=== PATIENT | male | born 1955 | race Caucasian/White ===

== ENCOUNTER 2016-08-02 12:20 | Inpatient (IN) | payer BC ==
[~2016-08-02] VITALS: Ht 195.6 cm; Wt 96.5 kg
--- NOTE | 2016-08-03 07:05 | MH ---
cc: MELINDA PEREZ DATE OF ADMISSION 08/03/2016 ADMISSION DIAGNOSIS Left hip osteoarthritis HISTORY This is a 61-year-old male with significant left hip pain. Investigative studies shows evidence of extensive arthritis of the left hip. Despite conservative care, this patient is painful and symptomatic. He presents for surgical treatment. PAST MEDICAL HISTORY, SOCIAL HISTORY AND FAMILY HISTORY, REVIEW OF SYSTEMS See attached notes. PHYSICAL EXAMINATION A 61-year-old male in moderate disstress with his left hip. HEENT: Normocephalic, atraumatic. Pupils equal, round, reactive to light and accommodation, extraocular motions intact. NECK: Supple. CHEST: Clear. HEART: Regular rate and rhythm. ABDOMEN: Soft, nontender, normoactive bowel sounds. MUSCULOSKELETAL: Left hip has pain with range of motion especially with internal and external rotation. NEUROLOGIC AND VASCULAR: Examination is within normal limits. IMPRESSION Osteoarthritis left hip. PLAN Left total hip replacement arthroplasty. CONSENT The risks with surgery including infection, bleeding, loss of motion, continued pain, need for further surgery, neurologic or vascular injury, the patient understands these issues with wishes to press on with surgery as outlined above. MD CHRISTIANO Collins/YVETTE /11:14 PM /7:03 AM
[2016-08-03] MEDS ORDERED: NEOSTIGMINE 3 MG/3 ML SYR IV ONE (09:20)
[2016-08-03] MEDS ORDERED: LACTATED RINGER'S 1000 ML INJ 2,000 ML IV ONE (09:20)
[2016-08-03] MEDS ORDERED: PROPOFOL 200 MG/20 ML AMP IV ONE (09:20)
[2016-08-03] MEDS ORDERED: ePHEDrine/NS 50 MG/5 ML SYR IV ONE (09:20)
[2016-08-03] MEDS ORDERED: PHENYLEPH/NS 1000 MCG/10 ML SYR IV ONE (09:20)
[2016-08-03] MEDS ORDERED: ONDANSETRON HCL 4 MG/2 ML VIAL IV PUSH ONE (09:20)
[2016-08-03] MEDS ORDERED: ceFAZolin 2 GM PREMIX 50 ML IV SCH (10:00)
[2016-08-03] MEDS ORDERED: SODIUM CHLORID 0.9% 500 ML IV SCH (10:00)
[2016-08-03] MEDS ORDERED: VANCOMYCIN 1000 MG/NS 250 ML (for <70 kg) IV SCH ×2 (10:00)
[2016-08-03] MEDS ORDERED: INSULIN HUMAN REGULAR 1,000 UNITS/10 ML VIAL SQ PRN (10:00)
[2016-08-03] MEDS ORDERED: METOPROLOL TARTRATE 25 MG TAB PO PRN (10:00)
[2016-08-03] MEDS ORDERED: LACTATED RINGER'S 1000 ML IV SCH (10:00)
[2016-08-03] MEDS ORDERED: EXPAREL PERI-ARTICULAR INJECTION (TOTAL VOL. 60 ML) P-ARTICULR SCH ×2 (10:00)
[2016-08-03] MEDS ORDERED: TRANEXAMIC ACID INJ 902 MG in SODIUM CHLORIDE 0.9% INJ 100 ML IV SCH ×2 (10:00→14:30)
[2016-08-03 10:14] VITALS: BP 131/97; PULSE 81; RESP 20; TEMP 98; O2SAT 100
[2016-08-03] MEDS ORDERED: GENTAMICIN SULFATE 80 MG/2 ML VIAL ONE (10:15)
[2016-08-03] MEDS ORDERED: TAMS5CAP PO (10:26)
[2016-08-03] MEDS ORDERED: PRIL20CA9 PO (10:26)
[2016-08-03] MEDS ORDERED: FAMOTIDINE 20 MG/2 ML VIAL ONE (10:48)
[2016-08-03] MEDS ORDERED: FAMOTIDINE 20 MG/2 ML VIAL IV ONE (10:49)
[2016-08-03] MEDS ORDERED: ACETAMINOPHEN 1000 MG/100 ML VIAL IV ONE (10:58)
[2016-08-03] MEDS ORDERED: fentaNYL CITRATE 250 MCG/5 ML AMP ONE ×2 (10:58→14:34)
[2016-08-03] MEDS ORDERED: GENTAMICIN SULFATE 80 MG/2 ML VIAL IRRIGATION ONE (12:09)
--- NOTE | 2016-08-03 14:09 | PD.OP ---
cc: Cesar Ahuja MD Operative Report Date of Surgery: Aug 03, 2016 Preoperative Diagnosis: Osteoarthritis left hip, severe Postoperative Diagnosis: Same. Ganglion cyst/bursitis, left abductor compartment Procedure: Left total hip replacement arthroplasty, direct anterior exposure Anesthesia: Gen. Surgeon: Cesar Ahuja Improvement Intern(s): BRADLEY Vann Operation and Findings: EBL: 500 cc INDICATION: This patient presents with significant hip pain related to severe osteoarthritis of the left hip with a contracture and lateral subluxation of the femoral head. Despite extensive conservative care this patient continues to be painful and now presents for surgical treatment. NOTE: María Elena Vann PA-C was present for the entire surgical procedure as my medical records assistant. In my medical opinion her skill and care was necessary for the proper management of this patient. COMPONENTS: COMPANY: [employer] CUP: [place], 58 mm, 100 series, gription surface LINER: Altrx 36 mm, +4, neutral STEM: 6 Corail size 16, standard offset, hydroxyapatite-coated HEAD: Metal, 36 mm, +15.5 neck length, 12/14 taper PROCEDURE: This patient was brought to the operating room and anesthetized in the supine position and positioned on the fracture table with both legs held extended. The left hip and leg was scrubbed with alcohol followed by Hibiclens followed by ChloraPrep and draped sterilely. Antibiotics were given within routine time window and a timeout was done. A 4 inch incision was made starting 2 cm distal and 2 cm lateral to the anterior superior iliac spine. The fascia mallika was opened longitudinally. The interval between the fascia mallika and the rectus was opened down to the capsule of the hip joint. There was evidence of a bursitis-type fluid collection that was located in the region of the gluteus minimus. This was resected and sent to pathology. A benign appearance to it. Retractors were positioned allowing good visualization of the capsule. This was opened longitudinally and flaps were created. Stay sutures were utilized. Exposure was excellent. The neck was cut at the proper location using fluoroscopy as a guide. The head was removed. Deep retractors were positioned allowing good visualization of the acetabulum. Acetabulum was deepened down to the floor starting with a proper size reamer and reaming up to 57 mm. A trial was utilized. Fluoroscopy was used to check position and confirmed satisfactory alignment. The rim was reamed with a 58 mm reamer and the final cup was positioned in approximately 20 of anteversion and 40-45 of abduction. Position was satisfactory. Because of concerns of leg length, we placed a temporary +4 liner. The lifting hook was utilized. The leg was dropped to the floor, maximally externally rotated and brought across the midline. Retractors were positioned. A box osteotome was utilized followed by progressive broaching to the proper stem size. Trial reduction showed excellent alignment and fit. With 60 of external rotation the leg was dropped to the floor without evidence of anterior subluxation. The wound was irrigated. We were concerned because of shortening of the left leg versus the right. We tried broaching with a size 18 and the fit was an proper. We elected to go with standard offset on a 16 stem with a long neck length using a +4 liner. That brought offset and leg length within a few millimeters of normal. The final liner was positioned. The final stem was positioned. The final reduction using the final head. Stability was as previously noted. Intraoperative x-rays were taken. The wound was irrigated copiously. Hemostasis was controlled. Local anesthesia was utilized. The capsule was repaired with #2 Tycron sutures. The fascia mallika was repaired with running 0 PDS on a loop. Subcutaneous tissue was approximated with 2-0 Vicryl and skin with running intradermal 3-0 Vicryl followed by Steri-Strips. A sterile dressing was applied. The patient was awakened and taken to the recovery room in satisfactory condition. FINDINGS: This patient had a large ganglion cyst in the region of the abductor muscles. Resected and sent to pathology. The patient had severe arthritis with a contracture. The final solution was felt be very excellent. Cesar Ahuja MD Aug 03, 2016 14:09
[2016-08-03] MEDS ORDERED: HYDR-3583 PO (14:11)
[2016-08-03] MEDS ORDERED: XARE10TA PO (14:11)
[2016-08-03] MEDS ORDERED: MORPHINE SULFATE 30 MG/30 ML PCA ONE (14:14)
[2016-08-03] MEDS ORDERED: TEMAZEPAM 15 MG CAP PO PRN (14:15)
[2016-08-03] MEDS ORDERED: MAGNESIUM HYDROXIDE SUSP 30 ML CUP PO PRN (14:15)
[2016-08-03] MEDS ORDERED: SODIUM CHLORIDE 0.9% FLUSH 5 ML FLUSH IVF PRN (14:15)
[2016-08-03] MEDS ORDERED: NALOXONE HCL 0.4 MG/ML AMP IV PRN (14:15)
[2016-08-03] MEDS ORDERED: ONDANSETRON HCL 4 MG/2 ML VIAL IVP PRN (14:15)
[2016-08-03] MEDS ORDERED: MORPHINE SULFATE 8 MG/ML INJ IV PUSH PRN (14:15)
[2016-08-03] MEDS ORDERED: Post-op Orders (for Pharmacy) MISC XX ONE (14:15)
[2016-08-03] MEDS ORDERED: BISACODYL 10 MG SUPP PR PRN (14:15)
[2016-08-03] MEDS ORDERED: ALUMINUM/MAGNESIUM/SIMETH 30 ML CUP PO PRN (14:15)
[2016-08-03] MEDS: MORPHINE SULFATE 30 MG/30 ML PCA IV SCH ×2 (14:30→19:32)
[2016-08-03] MEDS: LACTATED RINGER'S 1000 ML INJ 1,000 ML IV SCH (14:32)
[2016-08-03] MEDS ORDERED: MORPHINE SULFATE 4 MG/ML INJ ONE (14:34)
--- NOTE | 2016-08-03 15:55 | RADRPT ---
EXAM DATE/TIME: 08/03/2016 12:08 [place] COMPARISON: No previous studies available for comparison. INDICATIONS : Total anterior left hip arthroplasty. OR. MEDICAL HISTORY : None. SURGICAL HISTORY : None. ENCOUNTER: Initial ACUITY: 1 day PAIN SCORE: Non-responsive. LOCATION: Left hip FINDINGS: A two view examination of the left hip was performed. Post surgical changes followup hip replacement are noted. Acetabular and femoral components are well-seated and satisfactory alignment. There is no subacute fracture. CONCLUSION: Satisfactory appearance of the left hip status post hip replacement. Stas Cramer MD on August 03, 2016 at 15:53 Board Certified Radiologist. This report was verified electronically.
[2016-08-03] MEDS ORDERED: DO NOT ADM ANY ANTICOAGULANT DRUGS XX PRN (16:30)
[2016-08-03 17:15] VITALS: BP 129/81; PULSE 92; RESP 18; TEMP 97.1; O2SAT 99
[2016-08-03] MEDS: CEFAZOLIN IV SCH ×2 (18:31→23:56)
[2016-08-03] MEDS: SODIUM CHLORIDE 0.9% IV SCH ×2 (18:31→23:56)
[2016-08-03] MEDS: SODIUM CHLORIDE 0.9% FLUSH 5 ML FLUSH IVF SCH (21:00)
[2016-08-03] MEDS: TAMSULOSIN HCL 0.4 MG CAP PO SCH (21:00)
[2016-08-03 21:33] VITALS: BP 128/74; PULSE 90; RESP 18; TEMP 98.1; O2SAT 96
[2016-08-03] MEDS: PCA - TOTAL MG MORPHINE DELIVERED PER SHIFT SCH (22:00)
[2016-08-04] VITALS (7 sets, daily range): BP systolic 103–134; BP diastolic 59–76; PULSE 74–103; RESP 17–18; TEMP 98–98.9; O2SAT 96–99
[2016-08-04] MEDS: MORPHINE SULFATE 30 MG/30 ML PCA IV SCH ×2 (00:53→09:31)
[2016-08-04] MEDS: PCA - TOTAL MG MORPHINE DELIVERED PER SHIFT SCH ×3 (06:00→21:24)
[2016-08-04 06:29] LABS: HEMATOCRIT 29.1 % (39.0-51.0); REVIEW FLAG FINAL
[2016-08-04] MEDS: SODIUM CHLORIDE 0.9% IV SCH (06:44)
[2016-08-04] MEDS: CEFAZOLIN IV SCH (06:44)
[2016-08-04] MEDS: SODIUM CHLORIDE 0.9% FLUSH 5 ML FLUSH IVF SCH ×2 (09:00→21:23)
[2016-08-04] MEDS: PANTOPRAZOLE SOD 20 MG DELAYED RELEASE TAB PO SCH (09:10)
[2016-08-04] MEDS: ACETAMINOPHEN/HYDROcodone 325 MG/10 MG TAB PO PRN ×4 (09:11→21:22)
[2016-08-04] MEDS: POVIDONE IODINE 7.5% SCRUB 118 ML BOTTLE TOP SCH (10:00)
[2016-08-04] MEDS ORDERED: WALKER WHEELS/F1 MIS (13:19)
--- NOTE | 2016-08-04 13:21 | PD.ORT.PN ---
Subjective Subjective Remarks Left hip and thigh aching. Moderately controlled on PO meds. DC'd finance advisor. No new leg pain otherwise. No other complaints. No CP or SOB. Objective Vitals Vital Signs Date Time Temp Pulse Resp B/P Pulse Ox O2 Delivery O2 Flow Rate FiO2 08/04/16 10:22 96 21 08/04/16 09:36 16 08/04/16 09:31 20 08/04/16 08:00 98.4 92 18 134/73 98 08/04/16 06:00 18 08/04/16 04:47 98.2 85 18 124/70 96 08/04/16 01:04 98.0 74 18 122/76 96 08/04/16 00:53 18 08/03/16 22:00 18 08/03/16 21:33 98.1 90 18 128/74 96 08/03/16 19:32 17 08/03/16 17:15 97.1 92 18 129/81 99 08/03/16 17:08 98.0 86 18 154/86 99 Room Air 08/03/16 17:00 86 18 154/86 99 Room Air 08/03/16 16:30 81 18 153/88 99 Room Air 08/03/16 15:30 73 16 155/89 99 Room Air 08/03/16 15:15 77 16 148/81 99 Room Air 08/03/16 15:00 71 16 157/89 98 Room Air 08/03/16 14:45 69 16 130/85 98 Room Air 08/03/16 14:30 66 16 142/77 98 Room Air 08/03/16 14:30 16 08/03/16 14:20 97.9 67 16 141/76 98 Room Air I/O 08/03/16 08/03/16 08/03/16 08/04/16 08/04/16 08/04/16 07:00 15:00 23:00 07:00 15:00 23:00 Intake Total 2000 ml Output Total 700 ml 900 ml Balance 1300 ml -900 ml Intake Other 2000 ml Output Urine Total 200 ml 900 ml Estimated Blood Loss 500 ml Result Diagram: 08/04/16 0520 Objective Remarks Sitting in chair, NAD, VSS LLE Dressing c/d/i, mild swelling, no erythema thigh and calf supple, neg homans +motor at, +sens, +nvi Assessment & Plan Ortho Post Op Day #: 1 Problem List: Assessment and Plan pod#1 s/p L ABRIL, anterior Continue PO pain meds as needed. PT - WBAT LLE. Anterior abril precautions. Walker. Xarelto 10mg qd Hold dressing changes unless saturated. D/C planning, prefers d/c home w [facility] tomorrow. DME written. Eliza Velasquez Aug 04, 2016 13:21
[2016-08-04] MEDS: RIVAROXABAN 10 MG TAB PO SCH (13:34)
[2016-08-04] MEDS: LACTATED RINGER'S 1000 ML INJ 1,000 ML IV SCH (16:00)
[2016-08-04] MEDS: TAMSULOSIN HCL 0.4 MG CAP PO SCH (21:00)
[2016-08-04] MEDS: DOCUSATE SODIUM 100 MG CAP PO SCH (21:00)
[2016-08-05 00:20] VITALS: BP 139/72; PULSE 101; RESP 17; TEMP 98.8; O2SAT 97
[2016-08-05] MEDS: ACETAMINOPHEN/HYDROcodone 325 MG/10 MG TAB PO PRN ×5 (01:46→22:48)
[2016-08-05 04:25] VITALS: BP 124/76; PULSE 100; RESP 16; TEMP 97.4; O2SAT 97
[2016-08-05] MEDS: LACTATED RINGER'S 1000 ML INJ 1,000 ML IV SCH ×2 (04:30→17:00)
[2016-08-05] MEDS: PCA - TOTAL MG MORPHINE DELIVERED PER SHIFT SCH ×3 (06:00→22:00)
[2016-08-05 08:00] VITALS: BP 155/79; PULSE 99; RESP 18; TEMP 97.3; O2SAT 100
--- NOTE | 2016-08-05 08:42 | HHI.DCPOC ---
Discharge Care Plan Diagnosis: (1) Left hip pain (2) Osteoarthritis of left hip Your Health Problems Are: Incision/Drains Goals to Promote Your Health * To prevent worsening of your condition and complications * To maintain your health at the optimal level Directions to Meet Your Goals Take your medications as prescribed Follow your dietary instruction Follow activity as directed Keep your appointments as scheduled Take your immunizations and boosters as scheduled If your symptoms worsen call your PCP, if no PCP go to Urgent Care Center or Emergency Room Smoking is Dangerous to Your Health. Avoid second hand smoke Call the 24-hour hour crisis hotline for domestic abuse at Eliza Velasquez Aug 05, 2016 08:42
--- NOTE | 2016-08-05 08:42 | HHI.FF ---
Face to Face Verification Diagnosis: (1) Left hip pain (2) Osteoarthritis of left hip Physical Therapy Gait training, Safety evaluation, Transfer training, bed to chair Hip: Total hip, Protocol: Left, Progress to weight bearing Left LE Weight Bearing: WB as tolerated Additional Instructions PT 5 days/wk for 2 weeks. WBAT Left LE. Anterior ABRIL protocol. Walker assist as needed. Nursing RN Days per Week: 3 x Week(s): 1 Dressing Changes: Do not change dressing Additional Instructions Vitals assessment. Dressing assessment - do not change unless saturated. Ok to shower pod#5 if kept SEALED and dry. I have seen patient Yinka Miguel on 08/05/16. My clinical findings support the need for the requested home health care services because: Limited ability to care for self High risk of falls I certify that my clinical findings support that this patient is homebound because: Post-op weakness Unsteady gait/balance Eliza Velasquez Aug 05, 2016 08:41
--- NOTE | 2016-08-05 08:44 | HHI.DS ---
Discharge Summary Admission Date Aug 03, 2016 at 09:21 Discharge Date: Aug 06, 2016 Admitting Diagnosis see below Diagnosis: (1) Left hip pain Diagnosis: Principal (2) Osteoarthritis of left hip Diagnosis: Principal Procedures Left total hip arthroplasty, Direct Anterior approach Brief History This is a 61 year old male patient with a multi year history of left hip pain. He sought out medical treatment when his function began to decline. Imaging studies were performed showed moderate to severe arthritis of the left hip. Conservative measures were pursued including multiple prescription medications. An intra-articular injection was recommended but he declined. Surgical treatment was then recommended and he elected to move forward. CBC/BMP: 08/04/16 0520 Significant Findings Laboratory Tests Test 08/04/16 05:20 Hemoglobin 10.2 GM/DL (13.0-17.0) Hematocrit 29.1 % (39.0-51.0) PE at Discharge Sitting in chair, NAD, VSS LLE Dressing c/d/i, mild swelling, no erythema thigh and calf supple, neg homans +motor at, +sens, +nvi Hospital Course Surgical treatment was performed on the day of admission without complication. He recovered well in PACU and was transferred to the orthopaedic floor. Pain was controlled with IV and oral medications. DVT prophylaxis was initiated pod# 1. He was compliant with physical therapy and all ABRIL precautions. After 3 days he was found to be stable and discharged home with home health care with instruction to continue his therapy and to pursue a high fiber diet. Pt Condition on Discharge: Stable Discharge Disposition: Disch w/ Home Health Serv Discharge Instructions Diet Instructions: As Tolerated, No Restrictions, High Fiber Diet Activities You Can Perform: Weight Bearing as [place] Activities to Avoid: Strenuous Activity New Medications: Walker with Front Wheels (Walker with Front Wheels) 1 Mis Mis 1 EA .ROUTE DIRECTED #1 Ref 0 EA Hydrocodone-Acetaminophen (Hydrocodone-Acetaminophen) 10-325 mg Tab 1 TAB PO Q4H PRN PAIN LESS THAN 5 ON SCALE #50 TAB Rivaroxaban (Xarelto) 10 Mg Tab 10 MG PO Q24H Prevent Blood Clot #25 TAB Continued Medications: Omeprazole (Prilosec) 20 Mg Cap 20 MG PO DAILY #30 Ref 0 CAP Tamsulosin (Flomax) 0.4 Mg Cap 0.4 MG PO HS Manage Prostate Problems #30 Ref 0 CAP Eliza Velasquez Aug 05, 2016 08:44
[2016-08-05] MEDS: PANTOPRAZOLE SOD 20 MG DELAYED RELEASE TAB PO SCH (09:00)
[2016-08-05] MEDS: DOCUSATE SODIUM 100 MG CAP PO SCH ×2 (09:00→21:00)
--- NOTE | 2016-08-05 09:36 | PD.ORT.PN ---
Subjective Subjective Remarks Left hip sore but better today. Able to sleep better last night. Transfers improving but wants to be able to work on 'stepping up' today as he has stairs at home. No other complaints. No CP or SOB. Objective Vitals Vital Signs Date Time Temp Pulse Resp B/P Pulse Ox O2 Delivery O2 Flow Rate FiO2 08/05/16 08:00 97.3 99 18 155/79 100 08/05/16 04:25 97.4 100 16 124/76 97 08/05/16 00:20 98.8 101 17 139/72 97 08/04/16 20:15 98.7 103 17 130/69 99 08/04/16 16:00 98.3 99 18 121/59 98 08/04/16 14:00 16 08/04/16 12:00 98.9 94 18 103/59 98 08/04/16 10:22 96 21 08/04/16 09:36 16 I/O 08/04/16 08/04/16 08/04/16 08/05/16 08/05/16 08/05/16 07:00 15:00 23:00 07:00 15:00 23:00 Intake Total 2337 ml 360 ml 480 ml Output Total 1075 ml 500 ml 300 ml Balance 1262 ml -140 ml 180 ml Intake Oral 960 ml 360 ml 480 ml IV Total 1377 ml Output Urine Total 1075 ml 500 ml 300 ml # Bowel Movements 0 0 0 Result Diagram: 08/04/16 0520 Procedures Left total hip arthroplasty, Direct Anterior approach Objective Remarks Sitting in chair, NAD, VSS LLE Dressing c/d/i, mild swelling, no erythema thigh and calf supple, neg homans +motor at, +sens, +nvi Assessment & Plan Ortho Post Op Day #: 2 Problem List: (1) Left hip pain (2) Osteoarthritis of left hip Assessment and Plan pod#1 s/p L ABRIL, anterior Improved from yesterday. Continue PO pain meds as needed. PT - WBAT LLE. Anterior abril precautions. Walker. Xarelto 10mg qd Hold dressing changes unless saturated. Ok to d/c home w c today. F/U in 2 weeks as scheduled. F2F written. Eliza Velasquez Aug 05, 2016 09:36
[2016-08-05] MEDS: POVIDONE IODINE 7.5% SCRUB 118 ML BOTTLE TOP SCH (10:00)
[2016-08-05] MEDS: SODIUM CHLORIDE 0.9% FLUSH 5 ML FLUSH IVF SCH ×2 (10:26→21:00)
[2016-08-05 11:37] VITALS: BP 135/77; PULSE 95; RESP 17; TEMP 98.2; O2SAT 100
[2016-08-05] MEDS: RIVAROXABAN 10 MG TAB PO SCH (12:51)
[2016-08-05] MEDS ORDERED: LISI10TA3 PO (15:19)
[2016-08-05 15:56] VITALS: BP 132/76; PULSE 94; RESP 17; TEMP 98.3; O2SAT 96
[2016-08-05 20:15] VITALS: BP 132/73; PULSE 102; RESP 18; TEMP 99.4; O2SAT 97
[2016-08-05] MEDS: TAMSULOSIN HCL 0.4 MG CAP PO SCH (21:00)
[2016-08-06 00:16] VITALS: BP 137/76; PULSE 98; RESP 18; TEMP 99.1; O2SAT 97
[2016-08-06] MEDS: ACETAMINOPHEN/HYDROcodone 325 MG/10 MG TAB PO PRN ×2 (05:13→11:38)
[2016-08-06] MEDS: LACTATED RINGER'S 1000 ML INJ 1,000 ML IV SCH ×2 (05:30→12:20)
[2016-08-06] MEDS: PCA - TOTAL MG MORPHINE DELIVERED PER SHIFT SCH ×2 (06:00→12:19)
--- NOTE | 2016-08-06 07:44 | PD.ORT.PN ---
Subjective Subjective Remarks No complaints. Waiting on physical therapy to work on stairs. Ambulating in the [place] Objective Vitals Vital Signs Date Time Temp Pulse Resp B/P Pulse Ox O2 Delivery O2 Flow Rate FiO2 08/06/16 00:16 99.1 98 18 137/76 97 08/05/16 20:15 99.4 102 18 132/73 97 08/05/16 18:13 21 08/05/16 15:56 98.3 94 17 132/76 96 08/05/16 11:37 98.2 95 17 135/77 100 08/05/16 08:00 97.3 99 18 155/79 100 I/O 08/05/16 08/05/16 08/05/16 08/06/16 08/06/16 08/06/16 07:00 15:00 23:00 07:00 15:00 23:00 Intake Total 960 ml 720 ml 480 ml Output Total 600 ml 500 ml 675 ml Balance 360 ml 220 ml -195 ml Intake Oral 960 ml 720 ml 480 ml Output Urine Total 600 ml 500 ml 675 ml # Bowel Movements 0 0 0 Result Diagram: 08/04/16 0520 Procedures Left total hip arthroplasty, Direct Anterior approach Objective Remarks Lying in bed. Appears comfortable. Dressing dry. Mild swelling. No calf tenderness. Neuro normal. Negative Homans Assessment & Plan Ortho Post Op Day #: 3 Problem List: (1) Left hip pain (2) Osteoarthritis of left hip Assessment and Plan pod#3 s/p L ABRIL, anterior PLAN: Weightbearing as tolerated No dressing change Xarelto for 25 days [place] for pain Home with home healthcare and home physical therapy. Discharge today Follow-up in 2 weeks Cesar Ahuja MD Aug 06, 2016 07:44
[2016-08-06 08:00] VITALS: BP_SYST 112; BP_SYST 95; BP_DIAS 57; BP_DIAS 62; PULSE 103; PULSE 104; RESP 16; TEMP 97.5; TEMP 99; O2SAT 100; O2SAT 99
[2016-08-06] MEDS: PANTOPRAZOLE SOD 20 MG DELAYED RELEASE TAB PO SCH (09:00)
[2016-08-06] MEDS: DOCUSATE SODIUM 100 MG CAP PO SCH (09:00)
[2016-08-06] MEDS: SODIUM CHLORIDE 0.9% FLUSH 5 ML FLUSH IVF SCH (09:34)
[2016-08-06 10:28] VITALS: O2SAT 96
[2016-08-06 11:35] VITALS: BP 170/90
[2016-08-06] MEDS: RIVAROXABAN 10 MG TAB PO SCH (11:58)
[2016-08-06 12:00] VITALS: BP 142/84; PULSE 94; RESP 16; TEMP 96.7; O2SAT 100
== END 2016-08-06 12:53 | disposition home health service (06) | DRG 470 ==
LOC: HSDI 08-03 09:21 → N06B 08-03 17:18
PROVIDERS: ADMIT Orthopaedic Surgery Orthopaedic Surgery of the Spine; ATTEND Orthopaedic Surgery Orthopaedic Surgery of the Spine
PROC: 0MBM0ZZ Excision of Left Hip Bursa and Ligament, Open Approach (ICD-10-PCS; 2016-08-03)
PROC: 0SRB02A Replacement of Left Hip Joint with Metal on Polyethylene Synthetic Substitute, Uncemented, Open Approach (ICD-10-PCS; principal; 2016-08-03 11:14)
DX: M16.12 Unilateral primary osteoarthritis, left hip (principal); M67.452 Ganglion, left hip; K21.9 Gastro-esophageal reflux disease without esophagitis; Z87.891 Personal history of nicotine dependence
CPT/HCPCS: 73502; 76000; 85014; 85018; 86850; 86900; 86901; 86920; 88304; 88305; 88311; 93005; 94150; C1776; C9290; J0131; J0690; J1580; J2270; J2370; J2405; J2710; J3010; J3370; J7050; J7120